=== PATIENT | male | born 1965 | race Caucasian/White ===

== ENCOUNTER 2022-03-20 09:52 | Day surgery (SDC) | payer OTHER ==
[2022-03-19 08:18] VITALS: BMI 32.5
[2022-03-20] MEDS ORDERED: Midazolam HCl 2 mg/2 ml Vial ONE (11:37)
[2022-03-20] MEDS ORDERED: Famotidine/PF 20 mg/2ml Vial ONE (11:37)
[2022-03-20] MEDS ORDERED: Neomycin-Polymyxin 1 ML AMP ONE (11:59)
[2022-03-20] MEDS ORDERED: Bupivacaine PF 0.5% 30 ML VIAL ONE (11:59)
[2022-03-20] MEDS ORDERED: CEFAZOLIN 2 GM VIAL ONE (12:11)
[2022-03-20] MEDS ORDERED: Lidocaine 1% PF 5 ML VIAL ONE (12:19)
[2022-03-20] MEDS ORDERED: Fentanyl 100 MCG/2 ML VIAL ONE (12:19)
[2022-03-20] MEDS ORDERED: PROPOFOL 20 ML ONE (12:19)
[2022-03-20] MEDS ORDERED: PHENYLEPHRINE-NS 100 MCG/ML 10 ML SYRINGE ONE (14:06)
== END 2022-03-20 14:10 | disposition home or self-care (01) ==
LOC: CSHSDC 09:52
PROVIDERS: ATTEND Podiatrist Foot & Ankle Surgery
PROC: 0Y6Q0Z0 Detachment at Left 1st Toe, Complete, Open Approach (ICD-10-PCS; principal; 2022-03-20)
DX: C44.729 Squamous cell carcinoma of skin of left lower limb, including hip (principal); E11.621 Type 2 diabetes mellitus with foot ulcer; L97.502 Non-pressure chronic ulcer of other part of unspecified foot with fat layer exposed; F17.210 Nicotine dependence, cigarettes, uncomplicated; I10 Essential (primary) hypertension; K21.9 Gastro-esophageal reflux disease without esophagitis; E11.51 Type 2 diabetes mellitus with diabetic peripheral angiopathy without gangrene; I25.10 Atherosclerotic heart disease of native coronary artery without angina pectoris; Z79.899 Other long term (current) drug therapy; Z79.02 Long term (current) use of antithrombotics/antiplatelets
CPT/HCPCS: 88305; 88311; J2250; J2704; J3010; S0020; S0028